=== PATIENT | female | born 1955 | race Caucasian/White ===

== ENCOUNTER 2017-02-19 15:52 | Emergency (ER) | payer OTHER ==
--- NOTE | ~2017-02-19 | CR172 ---
[facility] A Service of [facility] & [facility] RADIOLOGY TEXT RESULTS PATIENT: HARESH VERDUGO LOCATION: SED : 57 UNIT #: [id number] AGE: [address]: Denisa Blackman APRN SEX: F ORDER DR: [id number] [address] [id number] [id number] MR#: [id number] Acc #: [id number] NAME: HARESH VERDUGO. : 1955 SEX: F STUDY DATE/TIME: 02/19/2017 16:37 UNIT: SED ROOM: STUDY DESCRIPTION: CR Knee 3 Views Lt Attending Physician: Denisa Blackman A.P.R.N. Ordering Physician: Denisa Blackman A.P.R.N. Primary Care Physician: Suze Cabrera MEDICAL IMAGING REPORT This report is preliminary unless electronic signature is present. EXAM Left knee, 3 views. INDICATIONS Fall Saturday, knee pain since then. COMPARISON 11/23/2016 FINDINGS There is no joint effusion. There is no significant degenerative change. There is no evidence for fracture or dislocation. IMPRESSION No acute findings. No evidence for fracture. Dictated by... Gilberto Solis M.D. THIS IS AN ELECTRONICALLY VERIFIED REPORT Gilberto Solis M.D. at 02/20/2017 5:13 PM LISETH/florentino TD: 02/19/2017 21:07 JOB #: [id number] MEDICAL IMAGING REPORT Page 1 of 1
[~2017-02-19 15:52] MED LIST: ADVAIR 2501 DISK W/D PO; ALBUTEROL17 GM; BENICAR PO; BETASERON0.3 MG; CELEXA PO; KEFLEX PO; LISINOPRIL PO; TRAZODONE HCL100 MG; TYLENOL #3 PO; VOLTAREN75 MG PO; ZOFRAN ODT4 MG/UDTAB PO; ZOLOFT100 MG; [UNRECOGNIZED DRUG - OTHER]
[2017-02-19] MEDS ORDERED: SIMVASTATIN40 MG (16:09)
[2017-02-19] MEDS ORDERED: DIOVAN (16:10)
[2017-02-19] MEDS ORDERED: GABAPENTIN300 MG (16:10)
== END 2017-02-19 17:49 | disposition home or self-care (01) ==
LOC: SED 15:52
DX: S83.422A Sprain of lateral collateral ligament of left knee, initial encounter (principal); S80.212A Abrasion, left knee, initial encounter; S90.512A Abrasion, left ankle, initial encounter; X58.XXXA Exposure to other specified factors, initial encounter; Y92.009 Unspecified place in unspecified non-institutional (private) residence as the place of occurrence of the external cause
CPT/HCPCS: 29530; 73562; 99283

== ENCOUNTER → 2017-03-29 | Outpatient (CLI) | payer OTHER ==
[~2017-03-29] MED LIST changes: +DIOVAN; +GABAPENTIN300 MG; +SIMVASTATIN40 MG
--- NOTE | ~2017-03-29 | US85 ---
[facility]. [facility] A Service of [facility] RADIOLOGY TEXT RESULTS PATIENT: HARESH VERDUGO LOCATION: SNIV : 57 UNIT #: [id number] AGE: [address]: Sukumar Walsh MD SEX: F ORDER DR: [id number] [place] [id number] O MR#: [id number] Acc #: [id number] NAME: HARESH VERDUGO : 1955 SEX: F STUDY DATE/TIME: 03/29/2017 16:19 UNIT: SNIV ROOM: STUDY DESCRIPTION: [facility] Attending Physician: Sukumar Walsh M.D. Ordering Physician: Sukumar Walsh M.D. MEDICAL IMAGING REPORT This report is preliminary unless electronic signature is present. EXAM Venous Doppler ultrasound, left leg, 03/29/2017 HISTORY 61-year-old female complaining of 1-week history of left lower extremity pain and swelling. TECHNIQUE Venous ultrasound examination of the left lower extremity was performed using grayscale, spectral Doppler and color flow Doppler imaging. FINDINGS The examination is negative. There is no evidence of left lower extremity deep venous thrombus from the groin to the lower calf. Visualized greater saphenous vein is also patent. IMPRESSION Negative examination. No evidence of left lower extremity deep venous thrombosis. Dictated by... Ortega Fuller M.D. THIS IS AN ELECTRONICALLY VERIFIED REPORT Oretga Fuller M.D. at 03/29/2017 10:23 PM PARISW/elizabeth TD: 03/29/2017 21:55 JOB #: [id number] [facility]. [facility] A Service [facility] RADIOLOGY TEXT RESULTS PATIENT: HARESH VERDUGO LOCATION: SNIV : 57 UNIT #: [id number] AGE: [address]: Sukumar Walsh MD SEX: F ORDER DR: MEDICAL IMAGING REPORT Page 1 of 1
== END | disposition home or self-care (01) ==
LOC: SNIV 15:30
DX: M79.89 Other specified soft tissue disorders (principal); M79.605 Pain in left leg
CPT/HCPCS: 93971